=== PATIENT | male | born 1960 ===

== ENCOUNTER 2024-05-28 15:16 | Emergency (ER) | payer SELFPAY ==
[~2024-05-28] VITALS: Ht 162.6 cm; Wt 49.9 kg
[2024-05-28 15:18] VITALS: BP 146/78; PULSE 110; RESP 18; TEMP 97.4; O2SAT 97
[2024-05-28] MEDS: MUPIROCIN 2% OINT 22 GM TUBE TP SCH (16:41)
[2024-05-28] MEDS: BACITRACIN OINT 500 UNITS/GM PKT TP ONE (16:41)
[2024-05-29] MEDS ORDERED: MUPIROCIN 2% OINT 22 GM TUBE TP SCH (09:00)
== END 2024-05-28 16:46 ==
LOC: MED 15:16
DX: S50.812A Abrasion of left forearm, initial encounter (principal); S50.811A Abrasion of right forearm, initial encounter; R03.0 Elevated blood-pressure reading, without diagnosis of hypertension; V87.8XXA Person injured in other specified noncollision transport accidents involving motor vehicle (traffic), initial encounter; Y93.89 Activity, other specified; Y92.89 Other specified places as the place of occurrence of the external cause; Y99.8 Other external cause status
CPT/HCPCS: 73090; 99283